=== PATIENT | female | born 1950 | race Caucasian/White ===

== ENCOUNTER 2016-06-10 19:43 | Emergency (ER) | payer MEDICARE, OTHER ==
[~2016-06-10] VITALS: Ht 160 cm; Wt 94.8 kg
[~2016-06-10 19:43] MED LIST: ALPR0.5T6 PO; CAND1TAB PO; CAND32TA2 PO; DIVA500T2 PO; HYDR-2762 PO; HYDR-963 PO; INSU100I13 SQ; LAMO100T PO; LAMO150T PO; LEVO137T3 PO; METF10002 PO; PROP10TA PO; PROP40TA PO; QUET200T4 PO; SERT100T PO; SERT25TA4 PO; SIMV10TA3 PO; SIMV20TA3 PO
--- NOTE | 2016-06-10 21:13 | PHYS DOC ---
Past Medical History Past Medical History: Bipolar, Diabetes-Type II, High Cholesterol, Hypertension , Other Additional Past Medical Histor: bipolar, restless leg syndrome, sleep apnea, neuropathy Past Surgical History: Cholecystectomy, , Hysterectomy, Tonsillectomy Alcohol Use: None Drug Use: None Adult General Chief Complaint Chief Complaint: HEAD INJURY/TRAUMA HPI HPI 65-year-old female presenting to the emergency department after sustaining a mechanical fall at a restaurant today. She reports having her leg caught up in a chair where she fell backwards and hit the back of her head. She denies loss of consciousness does have mild dizziness and feels "foggy". Review of systems is negative for chest pain shortness of breath neck pain. She denies abdominal pain. All other review of systems is negative unless otherwise noted in history of present illness. Review of Systems Review of Systems SEE ABOVE. Allergies Allergies Allergies Coded Allergies Type Severity Reaction Last Updated Verified No Known Drug Allergies 05/23/15 No Physical Exam Physical Exam Constitutional: Well developed, well nourished, no acute distress, non-toxic appearance. HENT: Normocephalic, patient has small abrasion to the left occipital region. No depressed skull fracture noted., bilateral external ears normal, oropharynx moist, no oral exudates, nose normal. [] Eyes: PERRLA, EOMI, conjunctiva normal, no discharge. [] Neck: Normal range of motion, no tenderness, supple, no stridor. Cervical thoracic and lumbar spine are nontender to palpation in the midline. No step- offs abrasions lacerations or ecchymosis present. Cardiovascular:Heart rate regular rhythm, no murmur Lungs & Thorax: Bilateral breath sounds clear to auscultation [] Abdomen: Bowel sounds normal, soft, no tenderness, no masses, no pulsatile masses. [] Skin: Warm, dry, no erythema, no rash. Back: No tenderness, no CVA tenderness. [] Extremities: No tenderness, no cyanosis, no clubbing, ROM intact, no edema. Neurologic: Alert and oriented X 3, normal motor function, normal sensory function, no focal deficits noted. Psychologic: Affect normal, judgement normal, mood normal. [] Current Patient Data Vital Signs Vital Signs Date Time Temp Pulse Resp B/P Pulse Ox O2 Delivery O2 Flow Rate FiO2 06/10/16 20:30 58 18 111/55 95 Room Air 06/10/16 19:58 98.3 98.3 EKG EKG [] Radiology/Procedures Radiology/Procedures [] Course & Med Decision Making Course & Med Decision Making Pertinent Labs and Imaging studies reviewed. (See chart for details) [] 65-year-old female presenting to the emergency after sustaining head injury. Vital signs unremarkable. Physical exam showed small abrasion to the head. Given the patient's age which disqualifies her from clinical decision rules head neck CT was obtained which was negative for acute pathology. She subsequent discharged home and given concussion discharge instructions. Patient comfortable with discharge. Dragon Disclaimer Dragon Disclaimer This electronic medical record was generated, in whole or in part, using a voice recognition dictation system. Departure Departure Impression: Primary Impression: Concussion Additional Impression: Head injury Disposition: HOME, SELF-CARE Condition: STABLE Referrals: LUIS MANUEL CALI MD (PCP) Patient Instructions: Concussion and Brain Injury Additional Instructions: Thank you for allowing us to participate in your care today. Followup with your primary care physician in 3 days if your symptoms do not improve. If you do not have a primary care provider you can ask for a list of our primary care providers. Return to the emergency department you have any new or concerning findings. This should be evaluated by the primary care physician and any necessary consulting services for continued management within a few days after discharge. Return to emergency room if you have any new or concerning symptoms including but not limited to fever, chills, nausea, vomiting, intractable pain, any new rashes, chest pain, shortness of air, uncontrolled bleeding, difficulty breathing, and/or vision loss. Problem Qualifiers LUCI SANDERS MD Jun 10, 2016 21:13
--- NOTE | 2016-06-10 21:48 | RAD ---
INDICATION: Fall backwards out of chair, hit head without loss of consciousness. COMPARISON: December 11, 2010 TECHNIQUE: Axial, noncontrast CT images obtained through the head. One or more of the following individualized dose reduction techniques were utilized for this examination: 1. Automated exposure control; 2. Adjustment of the mA and/or kV according to patient size; 3. Use of iterative reconstruction technique. FINDINGS: No acute intracranial process is identified, specifically no acute blood products, midline shift, mass effect or extra-axial fluid collections. Ventricles and sulci appear appropriate for patient's age. Basilar cisterns are maintained. The visualized paranasal sinuses are clear. Mastoid air cells are clear. No calvarial fracture is present. Overlying scalp is intact. IMPRESSION: No acute intracranial process. Electronically signed by: Joan Silva (Jun 10, 2016 21:46:38)
[2016-06-10 22:00] VITALS: BP 115/56
== END 2016-06-10 22:22 | disposition home or self-care (01) ==
LOC: ER 19:43
DX: S06.0X0A Concussion without loss of consciousness, initial encounter (principal); G47.30 Sleep apnea, unspecified; E11.40 Type 2 diabetes mellitus with diabetic neuropathy, unspecified; I10 Essential (primary) hypertension; E78.00 Pure hypercholesterolemia, unspecified; W01.198A Fall on same level from slipping, tripping and stumbling with subsequent striking against other object, initial encounter; Y93.89 Activity, other specified; Y92.511 Restaurant or cafe as the place of occurrence of the external cause; Y99.8 Other external cause status
CPT/HCPCS: 70450; 99284-25

== ENCOUNTER → 2016-09-23 | Outpatient (CLI) | payer MEDICARE, OTHER ==
[~2016-09-23] MED LIST changes: +METF-620 PO; -METF10002 PO
--- NOTE | 2016-09-23 14:43 | KCIC ---
Examination: DEXA scan HISTORY: History of postmenopausal COMPARISON: None available FINDINGS: The bone mineral density of the lumbar spine is 1.356 g/sq cm the T score of 2.8 and a Z score of 4.7. The bone mineral density in the right hip is 0.870 g/sq cm with T score -0.6 and a Z score of 0.7. IMPRESSION: The bone mineral density is normal. Electronically signed by: Trell Warner MD (09/23/2016 2:40 PM)
== END | disposition home or self-care (01) ==
LOC: KCIC DEXA 13:12
PROVIDERS: ATTEND Family Medicine
DX: Z78.0 Asymptomatic menopausal state (principal); Z91.89 Other specified personal risk factors, not elsewhere classified
CPT/HCPCS: 77080

== ENCOUNTER 2017-04-08 20:48 | Emergency (ER) | payer MEDICARE, OTHER ==
[2017-04-08 21:28] LABS: BILIRUBIN,URINE SMALL (NEG); CLARITY,URINE CLEAR; COLOR,URINE YELLOW; GLUCOSE,URINE NEGATIVE (NEG); NITRITE,URINE NEGATIVE (NEG); PH,URINE 5.5; PROTEIN,URINE NEGATIVE (NEG-TRACE)
[2017-04-08 21:36] LABS: BACTERIA,URINE MODERATE /HPF (0-FEW); RBC,URINE OCC /HPF (0-2); SQUAMOUS EPITHELIAL CELL,UR MOD /LPF
[2017-04-08] MEDS: NITROFURANTOIN MONOHYD/M-CRYST 100 MG CAPSULE. PO (22:25)
== END 2017-04-08 22:40 | disposition home or self-care (01) ==
LOC: ER 20:48
DX: R42 Dizziness and giddiness (principal); N30.00 Acute cystitis without hematuria; E78.00 Pure hypercholesterolemia, unspecified; I10 Essential (primary) hypertension; F31.9 Bipolar disorder, unspecified; E11.40 Type 2 diabetes mellitus with diabetic neuropathy, unspecified; G25.81 Restless legs syndrome; Z90.710 Acquired absence of both cervix and uterus; Z90.49 Acquired absence of other specified parts of digestive tract; Z98.890 Other specified postprocedural states
CPT/HCPCS: 81001; 87086; 99284

== ENCOUNTER → 2017-05-16 | Outpatient (CLI) | payer MEDICARE, OTHER | END | disposition home or self-care (01) | LOC: KCIC MRI 08:57 | DX: G25.0 Essential tremor (principal); R26.81 Unsteadiness on feet; R41.3 Other amnesia | CPT/HCPCS: 70551 ==

== ENCOUNTER 2017-05-25 16:14 | Inpatient (IN) | payer MEDICARE, OTHER ==
[2017-05-25] MEDS ORDERED: 0.9 % SODIUM CHLORIDE 10 ML DISP.SYRIN. IV (16:30)
[2017-05-25 16:42] LABS: BILIRUBIN,URINE SMALL (NEG); CLARITY,URINE CLOUDY; COLOR,URINE YELLOW; GLUCOSE,URINE NEGATIVE (NEG); NITRITE,URINE NEGATIVE (NEG); PH,URINE 7.5; PROTEIN,URINE NEGATIVE (NEG-TRACE)
[2017-05-25 16:47] LABS: BACTERIA,URINE 0 /HPF (0-FEW); RBC,URINE 0 /HPF (0-2); SQUAMOUS EPITHELIAL CELL,UR FEW /LPF; WBC,URINE OCC /HPF (0-4)
[2017-05-25 16:48] LABS: ADD MAN DIFF? NO
[2017-05-25 16:50] LABS: BASO # 0.1 x10^3/uL (0.0-0.2); BASO % 1 % (0-3); EOS # 0.1 x10^3/uL (0.0-0.7); EOS % 4 % (0-3); HEMATOCRIT 36.2 % (36.0-47.0); HEMOGLOBIN 12.3 g/dL (12.0-15.5); LYMPH # 1.5 x10^3/uL (1.0-4.8); LYMPH % 37 % (24-48); MEAN CORPUSCULAR HEMOGLOBIN 32 pg (25-35); MEAN CORPUSCULAR HGB CONC 34 g/dL (31-37); MEAN CORPUSCULAR VOLUME 95 fL (79-100); MONO # 0.4 x10^3/uL (0.0-1.1); MONO % 10 % (0-9); NEUT # 1.9 x10^3uL (1.8-7.7); NEUT % 48 % (31-73); PLATELET COUNT 99 x10^3/uL (140-400); RED BLOOD COUNT 3.82 x10^6/uL (3.50-5.40); RED CELL DISTRIBUTION WIDTH 13.5 % (11.5-14.5); WHITE BLOOD COUNT 3.9 x10^3/uL (4.0-11.0)
[2017-05-25] MEDS: IV NORMAL SALINE 1000ML BAG 1,000 ML IV ×2 (17:02→19:25)
[2017-05-25 17:11] LABS: ANION GAP 6 (6-14); BLOOD UREA NITROGEN 23 mg/dL (7-20); CALCIUM 8.5 mg/dL (8.5-10.1); CARBON DIOXIDE 30 mmol/L (21-32); CHLORIDE 99 mmol/L (98-107); CREATININE 1.5 mg/dL (0.6-1.0); GFR 34.7; GLUCOSE 249 mg/dL (70-99); POTASSIUM 5.2 mmol/L (3.5-5.1); SODIUM 135 mmol/L (136-145)
[2017-05-25 17:16] LABS: TROPONINI < 0.017 ng/mL (0.000-0.055)
[2017-05-25 17:16] LABS: ALBUMIN 3.7 g/dL (3.4-5.0); ALK PHOS 45 U/L (46-116); ALT (SGPT) 16 U/L (14-59); AST (SGOT) 13 U/L (15-37); DIRECT BILIRUBIN 0.1 mg/dL (0.0-0.2); LIPASE 57 U/L (73-393); MAGNESIUM 1.9 mg/dL (1.8-2.4); TOTAL BILIRUBIN 0.3 mg/dL (0.2-1.0); TOTAL PROTEIN 6.7 g/dL (6.4-8.2)
[2017-05-25 17:19] LABS: NT-PRO BNP 165 pg/mL (0-124)
[2017-05-25 17:19] LABS: CKMB INDEX 1.2 % (0-4); CKMB MASS 0.9 ng/mL (0.0-3.6); CREATINE KINASE 75 U/L (26-192)
[2017-05-25 17:45] LABS: THYROID STIM HORMONE (TSH) 1.429 uIU/mL (0.358-3.74)
[2017-05-25] MEDS ORDERED: ACETAMINOPHEN 325 MG TABLET. PO (19:15)
[2017-05-25] MEDS ORDERED: ONDANSETRON PF 4 MG/2 ML VIAL. IV (19:15)
[2017-05-25] MEDS ORDERED: fentaNYL PF VIAL 100 MCG/2 ML VIAL IV (19:15)
[2017-05-25] MEDS: CEPHALEXIN 250 MG CAPSULE. PO (19:25)
[2017-05-25] MEDS ORDERED: INSULIN DETEMIR 300 UNITS/3 ML INSULN.PEN. SQ (21:00)
[2017-05-25] MEDS ORDERED: DIVALPROEX DELAYED RELEASE 500 MG TABLET.DR. PO (21:00)
[2017-05-25] MEDS ORDERED: ALPRAZolam 0.5 MG TABLET PO (21:00)
[2017-05-25] MEDS ORDERED: lamoTRIgine 25 MG TABLET. PO (21:30)
[2017-05-25] MEDS: SIMVASTATIN 10 MG TABLET PO (22:18)
[2017-05-25] MEDS: lamoTRIgine 25 MG TABLET. PO (22:19)
[2017-05-25] MEDS: QUEtiapine 100 MG TABLET. PO (22:19)
[2017-05-25] MEDS: DIVALPROEX DELAYED RELEASE 250 MG TABLET.DR. PO (22:20)
[2017-05-25] MEDS: PROPRANOLOL 40 MG TABLET. PO (22:21)
[2017-05-25] MEDS: INSULIN DETEMIR 300 UNITS/3 ML INSULN.PEN. SQ (22:28)
[2017-05-25 22:31] LABS: POC GLUCOSE 215 mg/dL (70-99)
[2017-05-26] MEDS: IV NORMAL SALINE 1000ML BAG 1,000 ML IV ×2 (05:41→13:59)
[2017-05-26] MEDS: ASPIRIN 325 MG TABLET PO (08:53)
[2017-05-26] MEDS: ALPRAZolam 0.5 MG TABLET PO (08:54)
[2017-05-26] MEDS: lamoTRIgine 25 MG TABLET. PO ×2 (08:54→20:06)
[2017-05-26] MEDS: DIVALPROEX DELAYED RELEASE 250 MG TABLET.DR. PO ×2 (08:56→20:09)
[2017-05-26] MEDS: LEVOTHYROXINE 137 MCG TABLET PO (08:56)
[2017-05-26] MEDS: SERTRALINE 50 MG TABLET. PO (08:56)
[2017-05-26] MEDS: PROPRANOLOL 40 MG TABLET. PO (09:00)
[2017-05-26] MEDS: CEPHALEXIN 250 MG CAPSULE. PO ×4 (09:04→20:09)
[2017-05-26 11:50] LABS: POC GLUCOSE 158 mg/dL (70-99)
[2017-05-26 16:51] LABS: CREATINE KINASE 98 U/L (26-192)
[2017-05-26 17:00] LABS: POC GLUCOSE 181 mg/dL (70-99)
[2017-05-26 17:11] LABS: VITAMIN-B12 328 pg/mL (247-911)
[2017-05-26 18:29] LABS: BARBITURATES NEG (NEG); BENZODIAZEPINES POS (NEG); CANNABINOIDS NEG (NEG); COCAINE NEG (NEG); METHADONE NEG (NEG); OPIATES POS (NEG); PHENCYCLIDINE NEG (NEG)
[2017-05-26 18:30] LABS: AMPHETAMINE/METHAMPHETAMINE NEG (NEG); ETHANOL, URINE NEG (NEG)
[2017-05-26] MEDS: SIMVASTATIN 10 MG TABLET PO (20:08)
[2017-05-26] MEDS: QUEtiapine 100 MG TABLET. PO (20:08)
[2017-05-26] MEDS: INSULIN DETEMIR 300 UNITS/3 ML INSULN.PEN. SQ (20:19)
[2017-05-26 20:48] LABS: POC GLUCOSE 189 mg/dL (70-99)
[2017-05-26 20:58] LABS: POC GLUCOSE 93 mg/dL (70-99)
[2017-05-26] MEDS ORDERED: INSULIN DETEMIR 300 UNITS/3 ML INSULN.PEN. SQ (21:00)
[2017-05-27 08:07] LABS: POC GLUCOSE 63 mg/dL (70-99)
[2017-05-27] MEDS: lamoTRIgine 25 MG TABLET. PO (09:18)
[2017-05-27] MEDS: DIVALPROEX DELAYED RELEASE 250 MG TABLET.DR. PO ×2 (09:25→20:26)
[2017-05-27] MEDS: CEPHALEXIN 250 MG CAPSULE. PO (09:26)
[2017-05-27] MEDS: SERTRALINE 50 MG TABLET. PO (09:26)
[2017-05-27] MEDS: lamoTRIgine 100 MG TABLET. PO ×2 (09:26→20:25)
[2017-05-27] MEDS: LEVOTHYROXINE 137 MCG TABLET PO (09:26)
[2017-05-27] MEDS: ASPIRIN 325 MG TABLET PO (09:26)
[2017-05-27 09:57] LABS: POC GLUCOSE 163 mg/dL (70-99)
[2017-05-27 12:48] LABS: VAL ACID 38 mcg/mL (50-100)
[2017-05-27] MEDS: IV 1/2 NORMAL SALINE 500 ML IV (15:27)
[2017-05-27 16:52] LABS: POC GLUCOSE 197 mg/dL (70-99)
[2017-05-27 17:32] LABS: POC GLUCOSE 166 mg/dL (70-99)
[2017-05-27] MEDS: HYDROcodone/APAP 7.5/325MG 1 TAB TABLET PO (20:26)
[2017-05-27] MEDS: SIMVASTATIN 10 MG TABLET PO (20:26)
[2017-05-27] MEDS: QUEtiapine 100 MG TABLET. PO (20:27)
[2017-05-27 21:01] LABS: POC GLUCOSE 190 mg/dL (70-99)
[2017-05-27] MEDS: INSULIN DETEMIR 300 UNITS/3 ML INSULN.PEN. SQ (21:13)
[2017-05-28] MEDS: HYDROcodone/APAP 7.5/325MG 1 TAB TABLET PO ×3 (03:14→19:59)
[2017-05-28 08:02] LABS: POC GLUCOSE 84 mg/dL (70-99)
[2017-05-28] MEDS: SERTRALINE 50 MG TABLET. PO (09:19)
[2017-05-28] MEDS: DIVALPROEX DELAYED RELEASE 250 MG TABLET.DR. PO ×2 (09:19→19:59)
[2017-05-28] MEDS: lamoTRIgine 100 MG TABLET. PO ×2 (09:19→19:58)
[2017-05-28] MEDS: ASPIRIN 325 MG TABLET PO (09:19)
[2017-05-28] MEDS: LEVOTHYROXINE 137 MCG TABLET PO (09:19)
[2017-05-28 11:55] LABS: POC GLUCOSE 244 mg/dL (70-99)
[2017-05-28 16:58] LABS: POC GLUCOSE 256 mg/dL (70-99)
[2017-05-28] MEDS: SIMVASTATIN 10 MG TABLET PO (19:59)
[2017-05-28] MEDS: QUEtiapine 100 MG TABLET. PO (19:59)
[2017-05-28 21:19] LABS: POC GLUCOSE 254 mg/dL (70-99)
[2017-05-28] MEDS: INSULIN DETEMIR 300 UNITS/3 ML INSULN.PEN. SQ (21:20)
[2017-05-29] MEDS: HYDROcodone/APAP 7.5/325MG 1 TAB TABLET PO ×4 (01:50→23:37)
[2017-05-29 07:41] LABS: POC GLUCOSE 88 mg/dL (70-99)
[2017-05-29] MEDS: DIVALPROEX DELAYED RELEASE 250 MG TABLET.DR. PO ×2 (09:47→21:04)
[2017-05-29] MEDS: ASPIRIN 325 MG TABLET PO (09:47)
[2017-05-29] MEDS: lamoTRIgine 100 MG TABLET. PO ×2 (09:48→21:05)
[2017-05-29] MEDS: LEVOTHYROXINE 137 MCG TABLET PO (09:48)
[2017-05-29] MEDS: SERTRALINE 50 MG TABLET. PO (09:48)
[2017-05-29 11:58] LABS: POC GLUCOSE 124 mg/dL (70-99)
[2017-05-29] MEDS: CALCIUM CARBONATE 500 MG TABLET PO ×2 (13:04→21:04)
[2017-05-29 16:57] LABS: POC GLUCOSE 145 mg/dL (70-99)
[2017-05-29] MEDS: QUEtiapine 100 MG TABLET. PO (21:04)
[2017-05-29] MEDS: SIMVASTATIN 10 MG TABLET PO (21:04)
[2017-05-29] MEDS: INSULIN DETEMIR 300 UNITS/3 ML INSULN.PEN. SQ (21:13)
[2017-05-29 22:02] LABS: POC GLUCOSE 399 mg/dL (70-99)
[2017-05-30] MEDS: LEVOTHYROXINE 137 MCG TABLET PO (07:52)
[2017-05-30] MEDS: lamoTRIgine 100 MG TABLET. PO (07:53)
[2017-05-30] MEDS: ASPIRIN 325 MG TABLET PO (07:53)
[2017-05-30] MEDS: SERTRALINE 50 MG TABLET. PO (07:53)
[2017-05-30] MEDS: DIVALPROEX DELAYED RELEASE 250 MG TABLET.DR. PO (07:53)
[2017-05-30] MEDS: CALCIUM CARBONATE 500 MG TABLET PO (07:54)
[2017-05-30] MEDS: HYDROcodone/APAP 7.5/325MG 1 TAB TABLET PO (07:56)
[2017-05-30 08:11] LABS: POC GLUCOSE 136 mg/dL (70-99)
[2017-05-30] MEDS: ERGOCALCIFEROL (VITAMIN D2) 50,000 UNIT CAPSULE. PO (10:17)
[2017-05-30] MEDS: ALPRAZolam 0.5 MG TABLET PO (11:38)
[2017-05-30 12:00] LABS: POC GLUCOSE 299 mg/dL (70-99)
[2017-06-26] MEDS ORDERED: ERGOCALCIFEROL (VITAMIN D2) 50,000 UNIT CAPSULE. PO (12:00)
== END 2017-05-30 15:45 | DRG 917 ==
LOC: ER 16:14 → 6 SOUTH 18:44
DX: T42.4X1A Poisoning by benzodiazepines, accidental (unintentional), initial encounter (principal); G92 Toxic encephalopathy; E11.22 Type 2 diabetes mellitus with diabetic chronic kidney disease; E11.42 Type 2 diabetes mellitus with diabetic polyneuropathy; F11.20 Opioid dependence, uncomplicated; R55 Syncope and collapse; W18.39XA Other fall on same level, initial encounter; N18.3 Chronic kidney disease, stage 3 (moderate); I12.9 Hypertensive chronic kidney disease with stage 1 through stage 4 chronic kidney disease, or unspecified chronic kidney disease; E55.9 Vitamin D deficiency, unspecified; G47.33 Obstructive sleep apnea (adult) (pediatric); E03.9 Hypothyroidism, unspecified; E66.9 Obesity, unspecified; E78.5 Hyperlipidemia, unspecified; F17.200 Nicotine dependence, unspecified, uncomplicated; F31.9 Bipolar disorder, unspecified; T42.4X5A Adverse effect of benzodiazepines, initial encounter; G25.0 Essential tremor; Z96.649 Presence of unspecified artificial hip joint; G25.81 Restless legs syndrome; Z96.653 Presence of artificial knee joint, bilateral; M19.90 Unspecified osteoarthritis, unspecified site; R29.6 Repeated falls; Y93.89 Activity, other specified; Y92.89 Other specified places as the place of occurrence of the external cause; Y99.8 Other external cause status; Z87.440 Personal history of urinary (tract) infections; Z90.710 Acquired absence of both cervix and uterus; Z91.81 History of falling; Z88.2 Allergy status to sulfonamides
CPT/HCPCS: 36415; 70450; 71045; 72125; 80048; 80076; 80164; 80307; 81001; 82306; 82550; 82553; 82607; 82962; 83690; 83735; 83880; 84443; 84484; 85025; 87086; 93005; 93880; 95816; 96360; 97112-GP; 97116-GP; 97161-GP; 97165-GO; 97530-GO; 97530-GP; 97535-GO; 99285; 99285-25; J1815; J7030

== ENCOUNTER 2020-10-21 10:13 | Emergency (ER) | payer MEDICARE, OTHER ==
[~2020-10-21] VITALS: Ht 160 cm; Wt 75.0 kg
[~2020-10-21 10:13] MED LIST changes: +ASPI325T8 PO; +CAND32TA19 PO; -CAND32TA2 PO; +CARB1TAB22 PO; +CYAN-25 PO; +DIVA250T14 PO; +DONE10TA7 PO; +DOXE3TAB4 PO; +ENTA200T2 PO; -HYDR-2762 PO; +HYDR-2765 PO; +HYDR-3135 PO; -HYDR-963 PO; +INSU100I32 SQ; -LAMO100T PO; +LAMO100T8 PO; -LAMO150T PO; +LAMO150T4 PO; +LOSA25TA4 PO; +MELA10CA PO; -METF-620 PO; +METF10007 PO; +NALO25TA4 PO; +NITR100C62 PO; +SERT-266 PO; -SERT25TA4 PO; +SIMV10TA15 PO; -SIMV10TA3 PO; +SIMV20TA18 PO; -SIMV20TA3 PO
--- NOTE | 2020-10-21 10:36 | PHYS DOC ---
Past Medical History Past Medical History: Bipolar, Diabetes-Type II, High Cholesterol, Hypert ension, Other Additional Past Medical Histor: bipolar, restless leg syndrome, sleep apnea, neuropathy, tremors, Parkinson Past Surgical History: Cholecystectomy, , Hip Replacement, Hysterectomy, Knee Replacement, Tonsillectomy Smoking Status: Former Smoker Alcohol Use: Rarely Drug Use: None General Adult EDM: Chief Complaint: WEAKNESS/GENERALIZED HPI: HPI: Patient is a 70 year old female with history of Parkinson's disease, bipolar disease, HTN, HLD who presents with lightheaded/presyncopal episode. Approximately 9 AM patient was getting up to go to a moderate class when she was walking up the door she felt like both of her legs were getting weak and working to give out on her. She started to feel lightheaded. She sat down and the symptom started to improve. She did have some associated nausea. No chest pain , palpitations, or shortness of breath. Had a similar episode several months ago that had not recurred until today. No recent medication changes. She is unclear what her bipolar meds are, but states that she is no longer on lithium. She is on carbidopa levodopa, and an additional Parkinson's meds. Review of Systems: Review of Systems: Constitutional: Denies fever or chills. [] Eyes: Denies change in visual acuity. [] HENT: Denies nasal congestion or sore throat. [] Respiratory: Denies cough or shortness of breath. [] Cardiovascular: Denies chest pain or edema. [] GI: Denies abdominal pain, nausea, vomiting, bloody stools or diarrhea. [] : Denies dysuria. [] Musculoskeletal: Denies back pain or joint pain. [] Integument: Denies rash. [] Neurologic: Lightheadedness. Bilateral leg weakness. Denies headache, focal weakness or sensory changes. [] Endocrine: Denies polyuria or polydipsia. [] Lymphatic: Denies swollen glands. [] Psychiatric: Denies depression or anxiety. [] Heart Score: C/O Chest Pain: N/A Risk Factors: Risk Factors: DM, Current or recent (<one month) smoker, HTN, HLP, family history of CAD, obesity. Risk Scores: Score 0 - 3: 2.5% MACE over next 6 weeks - Discharge Home Score 4 - 6: 20.3% MACE over next 6 weeks - Admit for Clinical Observation Score 7 - 10: 72.7% MACE over next 6 weeks - Early Invasive Strategies Family History: Family History: No pertinent family history Current Medications: Current Medications Medications (Trade) Dose Ordered Sig/Edith Start Time Stop Time Status Last Admin Dose Admin Ringer's Solution 500 ml @ 500 mls/hr 1X ONCE 10/21/20 10:45 10/21/20 11:44 UNV Allergies: Allergies: Allergies Coded Allergies Type Severity Reaction Last Updated Verified Sulfa (Sulfonamide Antibiotics) Allergy Unknown 05/25/17 Yes Physical Exam: PE: Constitutional: Well developed, well nourished, no acute distress, non-toxic appearance. [] HENT: Normocephalic, atraumatic, bilateral external ears normal, oropharynx moist, no oral exudates, nose normal. [] Eyes: PERRLA, EOMI, conjunctiva normal, no discharge. [] Neck: Normal range of motion, no tenderness, supple, no stridor. [] Cardiovascular:Heart rate regular rhythm, no murmur [] Lungs & Thorax: Bilateral breath sounds clear to auscultation [] Abdomen: Bowel sounds normal, soft, no tenderness, no masses, no pulsatile masses. [] Skin: Warm, dry, no erythema, no rash. [] Back: No tenderness, no CVA tenderness. [] Extremities: No tenderness, no cyanosis, no clubbing, ROM intact, no edema. [] Neurologic: Alert, oriented to person, place, time. Face is symmetric. Speech is normal. Cranial nerves III-XII intact. 5/5 strength in bilateral upper and lower extremities in all dermatomes. No dysmetria with [id number]. Psychologic: Affect normal, judgement normal, mood normal. [] Current Patient Data: Labs: Laboratory Tests Test 10/21/20 10:32 Glucose (Fingerstick) 119 mg/dL (70-99) H EKG: EKG: Sinus rhythm. Rate 55. Borderline prolonged NE 208. Left anterior fascicular block. Flattening of T waves laterally and inferiorly. Compared to previous NE interval and LAFB are similar. [] Radiology/Procedures: Radiology/Procedures: NA [] Impression: NA Course & Med Decision Making: Course & Med Decision Making Pertinent Labs and Imaging studies reviewed. (See chart for details) Patient is a 70-year-old female with a history of bipolar disease and Parkinson's on carbidopa/levodopa who presents with what sounds like a pr esyncopal episode. No unilateral symptoms, speech difficulty, vision changes to suggest a stroke either anterior or posterior circulation. No chest pain to suggest ACS. EKG shows an LAFB and mild first-degree AV block. Compared with previous the flattening of the ST segments laterally are new. Troponin was ordered and negative which is very reassuring against ACS. As well as her history of no chest pain. Vital signs are reassuring. Potentially could be orthostatic lightheadedness given her Parkinson's and potential autonomic instability. Will check orthostatic vitals. Will check labs including CBC, CMP. 1051 AM Labs were reassuring. Orthostatic vitals were negative. Patient was able to eat and drink in the emergency department. Will pursue an ambulatory trial, and if she does well feel that she could be discharged home with PCP follow-up. 1322 AM Malia Disclaimer: Malia Disclaimer: This electronic medical record was generated, in whole or in part, using a voice recognition dictation system. Departure Departure Impression: Primary Impression: Pre-syncope Disposition: HOME / SELF CARE / HOMELESS Condition: STABLE Referrals: LUIS MANUEL CALI MD (PCP) Please follow-up with your PCP this week. Additional Instructions: Your labs, vital signs, and exam are reassuring against a dangerous cause for your symptoms. Please get up slowly in the future and give yourself time to equilibrate. This may be due to your Parkinson's disease, as this can cause changes in blood pressure. Please follow-up with your primary care doctor to look into this further. If you have new/concerning symptoms such as fever/chills, shortness of breath, chest pain, or other symptoms please return to the emergency department for reevaluation. KINGS BRADLEY MD Oct 21, 2020 10:36
[2020-10-21] MEDS ORDERED: IV RINGERS,LACTATED 1000ML 500 ML IV ONE (10:45)
[2020-10-21] MEDS ORDERED: IV RINGERS,LACTATED 500ML 500 ML IV ONE (10:45)
[2020-10-21 10:57] LABS: BASO % 1 % (0-3); EOS # 0.1 x10^3/uL (0.0-0.7); EOS % 3 % (0-3); HEMATOCRIT 33.3 % (36.0-47.0); HEMOGLOBIN 11.3 g/dL (12.0-15.5); LYMPH # 1.2 x10^3/uL (1.0-4.8); LYMPH % 39 % (24-48); MEAN CORPUSCULAR HEMOGLOBIN 33 pg (25-35); MEAN CORPUSCULAR HGB CONC 34 g/dL (31-37); MEAN CORPUSCULAR VOLUME 96 fL (79-100); MONO # 0.3 x10^3/uL (0.0-1.1); MONO % 10 % (0-9); NEUT # 1.4 x10^3/uL (1.8-7.7); NEUT % 47 % (31-73); PLATELET COUNT 112 x10^3/uL (140-400); RED BLOOD COUNT 3.47 x10^6/uL (3.50-5.40); RED CELL DISTRIBUTION WIDTH 13.3 % (11.5-14.5); WHITE BLOOD COUNT 3.1 x10^3/uL (4.0-11.0)
[2020-10-21 11:02] LABS: ANION GAP 7 (6-14); BLOOD UREA NITROGEN 20 mg/dL (7-20); BUN/CREATININE RATIO 18 (6-20); CALCIUM 8.4 mg/dL (8.5-10.1); CARBON DIOXIDE 30 mmol/L (21-32); CHLORIDE 102 mmol/L (98-107); CREATININE 1.1 mg/dL (0.6-1.0); GFR 49.1; GLUCOSE 116 mg/dL (70-99); POTASSIUM 3.8 mmol/L (3.5-5.1); SODIUM 139 mmol/L (136-145)
[2020-10-21 11:10] LABS: ALBUMIN 3.3 g/dL (3.4-5.0); ALBUMIN/GLOBULIN RATIO 1.2 (1.0-1.7); ALK PHOS 37 U/L (46-116); AST (SGOT) 9 U/L (15-37); TOTAL BILIRUBIN 0.4 mg/dL (0.2-1.0)
[2020-10-21 11:12] LABS: ALT (SGPT) < 6 U/L (14-59)
[2020-10-21 12:56] VITALS: BP 126/64
== END 2020-10-21 14:59 | disposition home or self-care (01) ==
LOC: ER 10:13
DX: R55 Syncope and collapse (principal); I44.4 Left anterior fascicular block; F31.9 Bipolar disorder, unspecified; E78.00 Pure hypercholesterolemia, unspecified; I10 Essential (primary) hypertension; E11.40 Type 2 diabetes mellitus with diabetic neuropathy, unspecified; G20 Parkinson's disease; G25.81 Restless legs syndrome; Z87.891 Personal history of nicotine dependence
CPT/HCPCS: 36415; 80053; 82962; 84484; 85025; 93005; 99284; J7120

== ENCOUNTER → 2020-12-28 | Outpatient (CLI) | payer MEDICARE, OTHER ==
--- NOTE | 2020-12-28 15:09 | RAD ---
CT HEAD WITHOUT CONTRAST 12/28/2020 2:55 PM Indication: Reason: RECURENT FALLS, AND DUTTA / Spl. Instructions: / History: Comparison: CT head without contrast July 15, 2020 Procedure: Multidetector CT imaging of the head was performed without the administration of contrast. Findings: There is no evidence of acute intracranial hemorrhage. Mild atrophic changes again noted. T here is no evidence of acute territorial infarction. No mass effect or midline shift is identified . The ventricles and basilar cisterns have an appropriate appearance. No abnormal extra-axial fluid co llections are seen. No acute osseous changes are identified. Impression: No evidence of acute intracranial abnormality CT DOSING PQRS STATEMENT: One or more of the following individualized dose reduction techniques were utilized for this examinat ion: 1. Automated exposure control 2. Adjustment of the mA and/or kV according to patient size 3. Use of iterative reconstruction technique Electronically signed by: Darinel Reed MD (12/28/2020 3:07 PM) [id number]
== END ==
LOC: CT 14:40
PROVIDERS: ATTEND Physician Assistant
DX: R51.9 Headache, unspecified (principal); R29.6 Repeated falls
CPT/HCPCS: 70450

== ENCOUNTER 2021-08-09 19:50 | Inpatient (IN) | payer MEDICARE, OTHER ==
[~2021-08-09] VITALS: Ht 160 cm; Wt 75.4 kg
[~2021-08-09 19:50] MED LIST changes: +LOSA-362 PO; -LOSA25TA4 PO
--- NOTE | 2021-08-09 20:27 | PHYS DOC ---
Past Medical History Past Medical History: Bipolar, Diabetes-Type II, High Cholesterol, Hypertension, Other Additional Past Medical Histor: bipolar, restless leg syndrome, sleep apnea, neuropathy, tremors, Parkinson Past Surgical History: Cholecystectomy, , Hysterectomy, Tonsillectomy Smoking Status: Former Smoker Alcohol Use: Rarely Drug Use: None Adult General HPI HPI Patient is a 71 year old female presenting to the emergency department for evaluation of nausea with 1 episode of emesis. [facility] activated this patient as a code stroke as they said that she had right-sided facial droop that started at 7 PM tonight. After her head CT was completed I went into the room immediately and she told me that she believes her right side of her face is always drooping due to a history of Rutledge's palsy multiple years ago. She is a very poor historian as she could not tell me which side but she pointed to her right side and she did not know when it occurred or what her deficits were. She said that she does not believe that this is new. She said she did not call the ambulance for facial droop rather her family said that she looked dizzy and had the episode of emesis. She says she has no emesis at this time. I asked her what she meant by she looked dizzy and she said she was uncertain as she does not feel any symptoms at this time. I asked her if she had a room spinning sensation or a lightheaded sensation and she said she did not know. Patient has a history of diabetes and takes oral medications and insulin at night. Looking at the history and physical exam from July 2020 I was able to ascertain the following information as far as her medical history goes. There is no family present to collaborate the facial weakness history. HISTORY OF PRESENT ILLNESS: A 70-year-old white female with multiple medical problems including mild diabetes, Parkinson's disease, bipolar disorder and hypertension, came in with 24 hours of weakness, dizziness, fatigue and lethargy. She was found to be hypotensive in the ER. IV fluids were given. Laboratory studies were unremarkable. She continued to feel weak, dizzy and was admitted, but she feels somewhat better today. These symptoms ____ on the morning of admission. She has had no hematemesis, melena, fever, vomiting, diarrhea or other complaints. PAST MEDICAL HISTORY: Her only blood pressure medicine is losartan 50 mg daily. She takes multiple psychiatric meds. She has mild insulin-dependent diabetes, takes Parkinson's meds as well. ALLERGIES: No known drug allergies. Last hemoglobin A1c was 6.9 about 3 months ago when her last office visit occurred. SOCIAL HISTORY: Nonsmoker, nondrinker. Lives at home with her , not employed, not physically active. FAMILY HISTORY: Unremarkable. Review of Systems Review of Systems Constitutional: Denies fever or chills [] Eyes: Denies change in visual acuity, redness, or eye pain [] HENT: Denies nasal congestion or sore throat [] Respiratory: Denies cough or shortness of breath [] Cardiovascular: No additional information not addressed in HPI [] GI: Denies abdominal pain. + nausea, vomiting. No bloody stools or diarrhea [] : Denies dysuria or hematuria [] Musculoskeletal: Denies back pain or joint pain [] Integument: Denies rash or skin lesions [] Neurologic: Denies headache, focal weakness or sensory changes [] All other systems were reviewed and found to be within normal limits, except as documented in this note. Current Medications Current Medications Current Medications Medications (Trade) Dose Ordered Sig/Edith Start Time Stop Time Status Last Admin Dose Admin Meclizine HCl (Antivert) 25 mg 1X ONCE 08/09/21 20:45 08/09/21 20:46 DC 08/09/21 20:26 25 MG Ondansetron HCl (Zofran) 4 mg 1X ONCE 08/09/21 20:45 08/09/21 20:46 DC 08/09/21 20:26 4 MG Sodium Chloride 1,000 ml @ 1,000 mls/hr 1X ONCE 08/09/21 20:45 08/09/21 21:44 DC 08/09/21 20:26 1,000 MLS/HR Allergies Allergies Allergies Coded Allergies Type Severity Reaction Last Updated Verified Sulfa (Sulfonamide Antibiotics) Allergy Unknown 05/25/17 Yes Physical Exam Physical Exam Constitutional: Well developed, well nourished, no acute distress, non-toxic appearance. [] HENT: Normocephalic, atraumatic, bilateral external ears normal, oropharynx moist, no oral exudates, nose normal. [] Eyes: PERRLA, EOMI, conjunctiva normal, no discharge. [] Neck: Normal range of motion, no tenderness, supple, no stridor. [] Cardiovascular:Heart rate regular rhythm, no murmur [] Lungs & Thorax: Bilateral breath sounds clear to auscultation [] Abdomen: Bowel sounds normal, soft, no tenderness, no masses, no pulsatile masses. [] Skin: Warm, dry, no erythema, no rash. [] Back: No tenderness, no CVA tenderness. [] Extremities: No tenderness, no cyanosis, no clubbing, ROM intact, no edema. [] Neurologic: Alert and oriented X 3, extremities have 5 out of 5 strength in bilateral upper and lower extremities. When she smiles she does have mild right-sided facial droop and her right upper eyelid droops as well. Symmetric strength on furring her brow. Current Patient Data Vital Signs Vital Signs Date Time Temp Pulse Resp B/P (MAP) Pulse Ox O2 Delivery O2 Flow Rate FiO2 08/09/21 20:34 79 18 112/49 (70) 100 Room Air 08/09/21 19:50 98.2 98.2 Lab Values Laboratory Tests Test 08/09/21 20:09 08/09/21 20:18 08/09/21 21:10 Glucose (Fingerstick) 284 mg/dL (70-99) H White Blood Count 4.8 x10^3/uL (4.0-11.0) Red Blood Count 4.07 x10^6/uL (3.50-5.40) Hemoglobin 13.4 g/dL (12.0-15.5) Hematocrit 38.6 % (36.0-47.0) Mean Corpuscular Volume 95 fL (79-100) Mean Corpuscular Hemoglobin 33 pg (25-35) Mean Corpuscular Hemoglobin Concent 35 g/dL (31-37) Red Cell Distribution Width 12.9 % (11.5-14.5) Platelet Count 136 x10^3/uL (140-400) L Neutrophils (%) (Auto) 59 % (31-73) Lymphocytes (%) (Auto) 29 % (24-48) Monocytes (%) (Auto) 9 % (0-9) Eosinophils (%) (Auto) 3 % (0-3) Basophils (%) (Auto) 1 % (0-3) Neutrophils # (Auto) 2.8 x10^3/uL (1.8-7.7) Lymphocytes # (Auto) 1.4 x10^3/uL (1.0-4.8) Monocytes # (Auto) 0.4 x10^3/uL (0.0-1.1) Eosinophils # (Auto) 0.1 x10^3/uL (0.0-0.7) Basophils # (Auto) 0.1 x10^3/uL (0.0-0.2) Prothrombin Time 12.8 SEC (11.7-14.0) Prothrombin Time INR 1.0 (0.8-1.1) Activated Partial Thromboplast Time 27 SEC (24-38) Sodium Level 138 mmol/L (136-145) Potassium Level 4.7 mmol/L (3.5-5.1) Chloride Level 99 mmol/L (98-107) Carbon Dioxide Level 25 mmol/L (21-32) Anion Gap 14 (6-14) Blood Urea Nitrogen 23 mg/dL (7-20) H Creatinine 1.5 mg/dL (0.6-1.0) H Estimated GFR (Cockcroft-Gault) 34.2 BUN/Creatinine Ratio 15 (6-20) Glucose Level 288 mg/dL (70-99) H Calcium Level 8.7 mg/dL (8.5-10.1) Total Bilirubin 0.3 mg/dL (0.2-1.0) Aspartate Amino Transferase (AST) 10 U/L (15-37) L Alanine Aminotransferase (ALT) < 6 U/L (14-59) L Alkaline Phosphatase 46 U/L (46-116) Troponin I High Sensitivity 7 ng/L (4-50) Total Protein 7.2 g/dL (6.4-8.2) Albumin 3.7 g/dL (3.4-5.0) Albumin/Globulin Ratio 1.1 (1.0-1.7) Thyroid Stimulating Hormone (TSH) 1.339 uIU/mL (0.358-3.74) Urine Collection Type Unknown Urine Color (Auto) Dark yellow Urine Turbidity Clear Urine pH (Auto) 5.5 (<5.0-8.0) Urine Specific [place] 1.031 (1.000-1.030) Urine Protein (Auto) 30 mg/dL (Negative) Urine Glucose (Auto)(UA) 200 mg/dL (Negative) Urine Ketones (Auto) 10 mg/dL (Negative) Urine Blood (Auto) Negative (Negative) Urine Nitrite Negative (Negative) Urine Bilirubin (Auto) Small (Negative) Urine Urobilinogen (Auto) 2 mg/dL (Normal) Urine Leukocyte Esterase (Auto) Large (Negative) Urine RBC 0 /HPF (0-2) Urine WBC 11-20 /HPF (0-4) Urine Squamous Epithelial Cells Few /LPF Urine Bacteria Few /HPF (0-FEW) Urine Hyaline Casts Moderate /HPF Urine Mucus Mod /LPF Laboratory Tests 08/09/21 20:18 Laboratory Tests 08/09/21 20:18 EKG EKG Sinus rhythm at 85 beats per minutes with leftward axis no ST elevation or depression with normal T waves but her EKG is compromised by and tremor due to her Parkinson's. Radiology/Procedures Radiology/Procedures [] Course & Med Decision Making Course & Med Decision Making I talked to her for approximately 10 minutes regarding her facial droop and if this could potentially be a stroke or not and patient said that she has had this in the past for years and then I told her that her history seem to be somewhat unclear and discussed tPA including the benefits and risks and patient refused tPA. I will check further labs and imaging treat her with IV fluids for her hyperglycemia and give her Zofran and meclizine in case this was an episode of vertigo. Patient's NIH = 2 for the R sided facial droop and chronic L arm weakness. Of note she was activated as a code stroke but there was an email sent today from the neurologist manager front office, Dr. Crenshaw essentially discouraging neuro consults, his email is posted in our work area. "Please be advised that there is no need to call neurologist(which is me every day except when I am on vacation or [place] [facility] covering) with every code stroke alert. Most of the time these are not strokes. If after assessing the patient, the ER doc has determined there is a stroke and needs a decision regarding TPA or other acute issue, I would be glad to receive a page. On the other hand, if, for instance, stroke is several days old and symptoms are stable, there is no need to call me." Obviously a stroke, especially a small stroke cannot always be determined clinically and requires MRI for diagnosis. The ER is also not allowed to order an MRI without Neurology approval. I had extensive discussion with the patient's spouse and the patient's daughter regarding her history and they confirmed that the facial droop is not new and in fact that she was diagnosed with Rutledge's palsy 20 years ago and that her facial droop is stable. However they did provide information that the reason they called 911 is because they witnessed an unresponsive episode. They said that while she was eating dinner she became unresponsive and started moaning and shaking her entire body with both upper extremities. They said that this lasted 30 to 45 seconds. Patient has never had a seizure before in the past. Given patient's new onset seizure and abnormal work-up with hyperglycemia and ketones in her urine and also urinalysis we will plan for admission. Rocephin and insulin have been ordered. Patient admitted in guarded condition. I spoke to Dr. Cali and he agreed to accept patient. Dragon Disclaimer Dragon Disclaimer This electronic medical record was generated, in whole or in part, using a voice recognition dictation system. Departure Departure Impression: Primary Impression: Seizure-like activity Additional Impressions: Unresponsive episode Hyperglycemia UTI (urinary tract infection) Disposition: ADMITTED INPATIENT Admitting Physician: Konrad Cali Condition: GUARDED Referrals: KONRAD CALI MD (PCP) Problem Qualifiers KONRAD LUIS DO August 09, 2021 20:27
[2021-08-09 20:30] LABS: BASO # 0.1 x10^3/uL (0.0-0.2); BASO % 1 % (0-3); EOS # 0.1 x10^3/uL (0.0-0.7); EOS % 3 % (0-3); HEMATOCRIT 38.6 % (36.0-47.0); HEMOGLOBIN 13.4 g/dL (12.0-15.5); LYMPH # 1.4 x10^3/uL (1.0-4.8); LYMPH % 29 % (24-48); MEAN CORPUSCULAR HEMOGLOBIN 33 pg (25-35); MEAN CORPUSCULAR HGB CONC 35 g/dL (31-37); MEAN CORPUSCULAR VOLUME 95 fL (79-100); MONO # 0.4 x10^3/uL (0.0-1.1); MONO % 9 % (0-9); NEUT # 2.8 x10^3/uL (1.8-7.7); NEUT % 59 % (31-73); PLATELET COUNT 136 x10^3/uL (140-400); RED BLOOD COUNT 4.07 x10^6/uL (3.50-5.40); RED CELL DISTRIBUTION WIDTH 12.9 % (11.5-14.5); WHITE BLOOD COUNT 4.8 x10^3/uL (4.0-11.0)
[2021-08-09 20:37] LABS: PROTHROMBIN TIME PATIENT 12.8 SEC (11.7-14.0)
[2021-08-09 20:40] LABS: ANION GAP 14 (6-14); BLOOD UREA NITROGEN 23 mg/dL (7-20); BUN/CREATININE RATIO 15 (6-20); CALCIUM 8.7 mg/dL (8.5-10.1); CARBON DIOXIDE 25 mmol/L (21-32); CHLORIDE 99 mmol/L (98-107); CREATININE 1.5 mg/dL (0.6-1.0); GFR 34.2; GLUCOSE 288 mg/dL (70-99); POTASSIUM 4.7 mmol/L (3.5-5.1); SODIUM 138 mmol/L (136-145)
[2021-08-09] MEDS ORDERED: ONDANSETRON PF 4 MG/2 ML VIAL. IVP ONE (20:45)
[2021-08-09] MEDS ORDERED: IV NORMAL SALINE 1000ML BAG 1,000 ML IV ONE (20:45)
[2021-08-09] MEDS ORDERED: MECLIZINE HCL 12.5 MG TABLET. PO ONE (20:45)
[2021-08-09 20:46] LABS: ALBUMIN 3.7 g/dL (3.4-5.0); ALBUMIN/GLOBULIN RATIO 1.1 (1.0-1.7); ALK PHOS 46 U/L (46-116); AST (SGOT) 10 U/L (15-37); TOTAL BILIRUBIN 0.3 mg/dL (0.2-1.0); TOTAL PROTEIN 7.2 g/dL (6.4-8.2)
[2021-08-09 20:47] LABS: ALT (SGPT) < 6 U/L (14-59)
[2021-08-09 21:27] LABS: BACTERIA,URINE FEW /HPF (0-FEW); RBC,URINE 0 /HPF (0-2)
[2021-08-09 21:28] LABS: HYALINE CASTS, URINE MODERATE /HPF
[2021-08-09] MEDS ORDERED: INSULIN REGULAR 100 UNIT/ML 3ML VIAL. IV ONE (22:00)
[2021-08-09] MEDS ORDERED: cefTRIAXone IV Push 1 GM VIAL. IVP ONE (22:00)
[2021-08-09] MEDS ORDERED: ONDANSETRON PF 4 MG/2 ML VIAL. IVP PRN (22:15)
--- NOTE | 2021-08-09 22:29 | NUR ---
Pt summary report was sent via tube system to [address] [place] [address] at [phone].
[2021-08-09 23:00] VITALS: BP 156/67
[2021-08-09] MEDS ORDERED: LEVO112T49 PO (23:25)
[2021-08-09] MEDS ORDERED: HYDROcodone/APAP 7.5/325MG 1 TAB TABLET PO PRN (23:45)
[2021-08-09] MEDS ORDERED: ALPRAZolam 0.5 MG TABLET PO PRN (23:45)
[2021-08-10] MEDS ORDERED: QUEtiapine 100 MG TABLET. PO SCH
[2021-08-10] MEDS ORDERED: SIMVASTATIN 10 MG TABLET PO SCH
[2021-08-10] MEDS ORDERED: DIVALPROEX EXTENDED RELEASE 500 MG TAB.ER.24H. PO SCH
[2021-08-10] MEDS ORDERED: INSULIN GLARGINE SYRINGE. SQ SCH
[2021-08-10] MEDS: CARBIDOPA/LEVODOPA 25/100MG TABLET PO SCH ×4 (00:12→17:00)
[2021-08-10] MEDS: lamoTRIgine 100 MG TABLET. PO SCH ×2 (00:12→09:08)
[2021-08-10] MEDS: ENTACAPONE 200 MG TABLET PO SCH ×4 (00:13→17:00)
[2021-08-10 02:37] VITALS: BP 89/48
[2021-08-10 05:55] LABS: BASO % 1 % (0-3); EOS # 0.1 x10^3/uL (0.0-0.7); EOS % 2 % (0-3); HEMATOCRIT 31.9 % (36.0-47.0); HEMOGLOBIN 11.2 g/dL (12.0-15.5); LYMPH # 1.8 x10^3/uL (1.0-4.8); LYMPH % 40 % (24-48); MEAN CORPUSCULAR HEMOGLOBIN 33 pg (25-35); MEAN CORPUSCULAR HGB CONC 35 g/dL (31-37); MEAN CORPUSCULAR VOLUME 93 fL (79-100); MONO # 0.4 x10^3/uL (0.0-1.1); MONO % 9 % (0-9); NEUT # 2.1 x10^3/uL (1.8-7.7); NEUT % 48 % (31-73); PLATELET COUNT 110 x10^3/uL (140-400); RED BLOOD COUNT 3.44 x10^6/uL (3.50-5.40); RED CELL DISTRIBUTION WIDTH 12.9 % (11.5-14.5); WHITE BLOOD COUNT 4.5 x10^3/uL (4.0-11.0)
[2021-08-10] MEDS ORDERED: LEVOTHYROXINE 112 MCG TABLET PO SCH (06:00)
[2021-08-10 06:08] LABS: CALCIUM 8.3 mg/dL (8.5-10.1); CREATININE 1.3 mg/dL (0.6-1.0); GFR 40.4; POTASSIUM 4.5 mmol/L (3.5-5.1)
[2021-08-10 07:00] VITALS: BP 97/50
--- NOTE | 2021-08-10 08:14 | PDOC ---
Provider Note Date of Service: DATE: 08/10/21 TIME: 08:14 Provider Note dictated Justifications for Admission Other Justification LUIS MANUEL CALI MD August 10, 2021 08:14
[2021-08-10] MEDS ORDERED: DONEPEZIL HCL 10 MG TABLET. PO SCH (09:00)
[2021-08-10] MEDS ORDERED: NALOXEGOL OXALATE PO SCH (09:00)
[2021-08-10] MEDS ORDERED: CYANOCOBALAMIN (VITAMIN B-12) 1,000 MCG TABLET. PO SCH (09:00)
[2021-08-10] MEDS ORDERED: SERTRALINE 50 MG TABLET. PO SCH (09:00)
[2021-08-10] MEDS ORDERED: ASPIRIN 325 MG TABLET PO SCH (09:00)
--- NOTE | 2021-08-10 10:26 | PDOC2 ---
NEUROLOGY CONSULT Date of Service DOS: DATE: 08/10/21 TIME: 10:17 Reason for Consult Reason for Consult: Syncope, possible stroke, possible seizure Referring Physician Referring Physician: Dr. Sanders Source Source: Caregiver (Daughter), Chart review, Patient History of Present Illness History of Present Illness The patient is a 71-year-old right-handed female who was not feeling well yesterday. She felt sick to her stomach and was lightheaded. She was at dinner with her daughter and and the rest of the daughter's family. She did not feel like eating. They brought her to the couch. 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 Then the patient lost consciousness briefly. There was disconjugate gaze. There was some tremulous movement. I have seen the patient in the past for essential tremor, she received a second opinion at and they have diagnosed Parkinson's. Indeed, the patient has more of a resting tremor now. There is no previous history of stroke or seizure. Patient was hypertensive in the emergency room Past Medical History Cardiovascular: HTN, Hyperlipidemia Pulmonary: Other (Sleep apnea) CENTRAL NERVOUS SYSTEM: Periperal neuropathy, Other (Parkinson's, restless legs) Psych: Anxiety, Bipolar, Depression Musculoskeletal: low back pain, Osteoarthritis Renal/: Chronic renal insuff (CKD III) Endocrine: Diabetes, Hypothyroidism Past Surgical History Past Surgical History: Cholecystectomy, , Total hip replacement (Left, following fracture), Total knee replacement (Bilateral), Hysterectomy Family History Family History: CVA Social History Social History , no alcohol or tobacco Current Medications Current Medications Current Medications Sodium Chloride 1,000 ml @ 1,000 mls/hr 1X ONCE IV Last administered on 08/09/21at 20:26; Start 08/09/21 at 20:45; Stop 08/09/21 at 21:44; Status DC Ondansetron HCl (Zofran) 4 mg 1X ONCE IVP Last administered on 08/09/21at 20:26; Start 08/09/21 at 20:45; Stop 08/09/21 at 20:46; Status DC Meclizine HCl (Antivert) 25 mg 1X ONCE PO Last administered on 08/09/21at 20:26; Start 08/09/21 at 20:45; Stop 08/09/21 at 20:46; Status DC Ceftriaxone Sodium (Rocephin) 2 gm 1X ONCE IVP Last administered on 08/09/21at 22:00; Start 08/09/21 at 22:00; Stop 08/09/21 at 22:01; Status DC Insulin Human Regular (HumuLIN R VIAL) 8 unit 1X ONCE IV Last administered on 08/09/21at 22:03; Start 08/09/21 at 22:00; Stop 08/09/21 at 22:01; Status DC Ondansetron HCl (Zofran) 4 mg PRN Q8HRS PRN IVP NAUSEA/VOMITING 1ST CHOICE; Start 08/09/21 at 22:15; Stop 08/10/21 at 22:14 Alprazolam (Xanax) 0.5 mg PRN Q12HR PRN PO ANXIETY / AGITATION; Start 08/09/21 at 23:45 Aspirin (Anabella Aspirin) 325 mg DAILY PO Last administered on 08/10/21at 09:07; Start 08/10/21 at 09:00 Carbidopa/Levodopa (Sinemet 25/100) 2 tab QID PO Last administered on 08/10/21at 09:08; Start 08/10/21 at 00:00 Cyanocobalamin (Vitamin B-12) 1,000 mcg DAILY PO Last administered on 08/10/21at 09:08; Start 08/10/21 at 09:00 Divalproex Sodium (Depakote Er) 1,000 mg QHS PO Last administered on 08/10/21at 00:12; Start 08/10/21 at 00:00 Donepezil HCl (Aricept) 10 mg DAILY PO Last administered on 08/10/21at 09:07; Start 08/10/21 at 09:00 Entacapone (Comtan) 200 mg QID PO Last administered on 08/10/21at 00:13; Start 08/10/21 at 00:00 Acetaminophen/ Hydrocodone Bitart (Lortab 7.5/325) 1 tab PRN Q8HRS PRN PO MODERATE PAIN 4-6; Start 08/09/21 at 23:45 Levothyroxine Sodium (Synthroid) 112 mcg DAILY06 PO Last administered on 08/10/21at 06:00; Start 08/10/21 at 06:00 Simvastatin (Zocor) 10 mg QHS PO Last administered on 08/10/21at 00:12; Start 08/10/21 at 00:00 Non-Formulary Medication (Doxepin HCl ) 3 mg QHS PO ; Start 08/10/21 at 21:00; Stop 08/10/21 at 07:54; Status DC Lamotrigine (LaMICtal) 150 mg BID PO Last administered on 08/10/21at 09:08; Start 08/10/21 at 00:00 Non-Formulary Medication (Melatonin ) 1 cap QHS PO ; Start 08/10/21 at 21:00; Status UNV Non-Formulary Medication (Naloxegol Oxalate (Movantik)) 1 tab DAILY PO ; Start 08/10/21 at 09:00; Status UNV Quetiapine Fumarate (SEROquel) 200 mg QHS PO Last administered on 08/10/21at 00:12; Start 08/10/21 at 00:00 Sertraline HCl (Zoloft) 100 mg DAILY PO Last administered on 08/10/21at 09:08; Start 08/10/21 at 09:00 Insulin Glargine (Lantus Syringe) 12 unit QHS SQ ; Start 08/10/21 at 00:00 Nitrofurantoin Macrocrystals (Macrobid) 100 mg BID PO ; Start 08/10/21 at 12:00 Active Scripts Active Reported Levothyroxine Sodium 112 Mcg Tablet 1 Tab PO QAM Shayy Ravipen U-100 (Insulin Glargine,Hum.rec.anlog) 100 Unit/1 Ml Insuln.pen 12 Unit SQ QHS Aspirin 325 Mg Tablet 1 Tab PO DAILY Vitamin B-12 (Cyanocobalamin (Vitamin B-12)) 1,000 Mcg Tablet 1 Tab PO DAILY 30 Days Movantik (Naloxegol Oxalate) 25 Mg Tablet 1 Tab PO DAILY Donepezil Hcl 10 Mg Tablet 1 Tab PO DAILY Melatonin 10 Mg Capsule 1 Cap PO QHS 30 Days Divalproex Sodium Er (Divalproex Sodium) 250 Mg Tab.er.24h 4 Tab PO QHS Entacapone 200 Mg Tablet 1 Tab PO QID Doxepin HCl 3 Mg Tablet 3 Mg PO QHS Carbidopa-Levodopa 25-100 Tab (Carbidopa/Levodopa) 1 Each Tablet 2 Tab PO QID Alprazolam 0.5 Mg Tablet 1 Tab PO PRN Q12HR PRN Lamotrigine 150 Mg Tablet 1 Tab PO BID Zoloft (Sertraline Hcl) 100 Mg Tablet 1 Tab PO DAILY Simvastatin 10 Mg Tablet 1 Tab PO QHS Hydrocodone-Apap 7.5-325 (Hydrocodone Bit/Acetaminophen) 1 Each Tablet 1 Tab PO PRN Q8HRS PRN Seroquel (Quetiapine Fumarate) 200 Mg Tablet 1 Tab PO QHS Metformin Hcl 1,000 Mg Tablet 1 Tab PO BID Allergies Allergies: Coded Allergies: Sulfa (Sulfonamide Antibiotics) (Verified Allergy, Intermediate, 08/09/21) ROS Review of System Negative for fever, chills, weight loss, shortness of breath, chest pain, indigestion, hematochezia, melena, and dysuria. Full 14-point review of systems is negative. Physical Exam Physical Examination General: Well-developed, well-nourished white female in no acute distress HEENT: Normocephalic andatraumatic.Temporal arteriespulsatile and nontender. Neck: Supple without bruit, no meningismus Musculoskeletal: Stability:see neurologic. Gait exam:see neurologic. Tone:see n eurologic.Strength:see neurologic. Neurological: Mental Status:intact, orientation, memory, attention span/concentration, la nguage, fund of knowledge normal. Cranial Nerves:Pupils equal and reactive to light, extraocular movements areintact, visual quiros are full to confrontation. Facial sensation is normal. There is no facial asymmetry. Vestibulo-ocular reflex is intact. Palate elevates and tongue protrudes in midline. All other cranial related problems are negative except as mentioned before.Reflexes:1+ and symmetric with flexor plantar responses. Motor:5/5 strength with normal tone and bulk. Coordination:Finger-nose finger and gady-tv-doxa testing are normal. Rapid alternating movements and fine finger movements are intact. She has mild rest tremor worse on the right. Gait:not tested. Sensory:stocking oss Vitals VITALS Vital Signs Date Time Temp Pulse Resp B/P (MAP) Pulse Ox O2 Delivery O2 Flow Rate FiO2 08/10/21 08:00 Room Air 08/10/21 07:00 97.9 67 20 97/50 (66) 90 97.9 Labs Labs Laboratory Tests Test 08/09/21 20:09 08/09/21 20:18 08/09/21 21:10 08/10/21 00:22 Glucose (Fingerstick) 284 mg/dL (70-99) 84 mg/dL (70-99) White Blood Count 4.8 x10^3/uL (4.0-11.0) Red Blood Count 4.07 x10^6/uL (3.50-5.40) Hemoglobin 13.4 g/dL (12.0-15.5) Hematocrit 38.6 % (36.0-47.0) Mean Corpuscular Volume 95 fL (79-100) Mean Corpuscular Hemoglobin 33 pg (25-35) Mean Corpuscular Hemoglobin Concent 35 g/dL (31-37) Red Cell Distribution Width 12.9 % (11.5-14.5) Platelet Count 136 x10^3/uL (140-400) Neutrophils (%) (Auto) 59 % (31-73) Lymphocytes (%) (Auto) 29 % (24-48) Monocytes (%) (Auto) 9 % (0-9) Eosinophils (%) (Auto) 3 % (0-3) Basophils (%) (Auto) 1 % (0-3) Neutrophils # (Auto) 2.8 x10^3/uL (1.8-7.7) Lymphocytes # (Auto) 1.4 x10^3/uL (1.0-4.8) Monocytes # (Auto) 0.4 x10^3/uL (0.0-1.1) Eosinophils # (Auto) 0.1 x10^3/uL (0.0-0.7) Basophils # (Auto) 0.1 x10^3/uL (0.0-0.2) Prothrombin Time 12.8 SEC (11.7-14.0) Prothromb Time International Ratio 1.0 (0.8-1.1) Activated Partial Thromboplast Time 27 SEC (24-38) Sodium Level 138 mmol/L (136-145) Potassium Level 4.7 mmol/L (3.5-5.1) Chloride Level 99 mmol/L (98-107) Carbon Dioxide Level 25 mmol/L (21-32) Anion Gap 14 (6-14) Blood Urea Nitrogen 23 mg/dL (7-20) Creatinine 1.5 mg/dL (0.6-1.0) Estimated GFR (Cockcroft-Gault) 34.2 BUN/Creatinine Ratio 15 (6-20) Glucose Level 288 mg/dL (70-99) Calcium Level 8.7 mg/dL (8.5-10.1) Total Bilirubin 0.3 mg/dL (0.2-1.0) Aspartate Amino Transf (AST/SGOT) 10 U/L (15-37) Alanine Aminotransferase (ALT/SGPT) < 6 U/L (14-59) Alkaline Phosphatase 46 U/L (46-116) Troponin I High Sensitivity 7 ng/L (4-50) Total Protein 7.2 g/dL (6.4-8.2) Albumin 3.7 g/dL (3.4-5.0) Albumin/Globulin Ratio 1.1 (1.0-1.7) Thyroid Stimulating Hormone (TSH) 1.339 uIU/mL (0.358-3.74) Urine Collection Type Unknown Urine Color (Auto) Dark yellow Urine Turbidity Clear Urine pH (Auto) 5.5 (<5.0-8.0) Urine Specific [place] 1.031 (1.000-1.030) Urine Protein (Auto) 30 mg/dL (Negative) Urine Glucose (Auto)(UA) 200 mg/dL (Negative) Urine Ketones (Auto) 10 mg/dL (Negative) Urine Blood (Auto) Negative (Negative) Urine Nitrite Negative (Negative) Urine Bilirubin (Auto) Small (Negative) Urine Urobilinogen (Auto) 2 mg/dL (Normal) Urine Leukocyte Esterase (Auto) Large (Negative) Urine RBC 0 /HPF (0-2) Urine WBC 11-20 /HPF (0-4) Urine Squamous Epithelial Cells Few /LPF Urine Bacteria Few /HPF (0-FEW) Urine Hyaline Casts Moderate /HPF Urine Mucus Mod /LPF Test 08/10/21 04:50 08/10/21 07:34 White Blood Count 4.5 x10^3/uL (4.0-11.0) Red Blood Count 3.44 x10^6/uL (3.50-5.40) Hemoglobin 11.2 g/dL (12.0-15.5) Hematocrit 31.9 % (36.0-47.0) Mean Corpuscular Volume 93 fL (79-100) Mean Corpuscular Hemoglobin 33 pg (25-35) Mean Corpuscular Hemoglobin Concent 35 g/dL (31-37) Red Cell Distribution Width 12.9 % (11.5-14.5) Platelet Count 110 x10^3/uL (140-400) Neutrophils (%) (Auto) 48 % (31-73) Lymphocytes (%) (Auto) 40 % (24-48) Monocytes (%) (Auto) 9 % (0-9) Eosinophils (%) (Auto) 2 % (0-3) Basophils (%) (Auto) 1 % (0-3) Neutrophils # (Auto) 2.1 x10^3/uL (1.8-7.7) Lymphocytes # (Auto) 1.8 x10^3/uL (1.0-4.8) Monocytes # (Auto) 0.4 x10^3/uL (0.0-1.1) Eosinophils # (Auto) 0.1 x10^3/uL (0.0-0.7) Basophils # (Auto) 0.0 x10^3/uL (0.0-0.2) Sodium Level 140 mmol/L (136-145) Potassium Level 4.5 mmol/L (3.5-5.1) Chloride Level 101 mmol/L (98-107) Carbon Dioxide Level 28 mmol/L (21-32) Anion Gap 11 (6-14) Blood Urea Nitrogen 23 mg/dL (7-20) Creatinine 1.3 mg/dL (0.6-1.0) Estimated GFR (Cockcroft-Gault) 40.4 Glucose Level 143 mg/dL (70-99) Calcium Level 8.3 mg/dL (8.5-10.1) Glucose (Fingerstick) 123 mg/dL (70-99) Laboratory Tests Test 08/09/21 20:09 08/09/21 20:18 08/09/21 21:10 08/10/21 00:22 Glucose (Fingerstick) 284 mg/dL (70-99) 84 mg/dL (70-99) White Blood Count 4.8 x10^3/uL (4.0-11.0) Red Blood Count 4.07 x10^6/uL (3.50-5.40) Hemoglobin 13.4 g/dL (12.0-15.5) Hematocrit 38.6 % (36.0-47.0) Mean Corpuscular Volume 95 fL (79-100) Mean Corpuscular Hemoglobin 33 pg (25-35) Mean Corpuscular Hemoglobin Concent 35 g/dL (31-37) Red Cell Distribution Width 12.9 % (11.5-14.5) Platelet Count 136 x10^3/uL (140-400) Neutrophils (%) (Auto) 59 % (31-73) Lymphocytes (%) (Auto) 29 % (24-48) Monocytes (%) (Auto) 9 % (0-9) Eosinophils (%) (Auto) 3 % (0-3) Basophils (%) (Auto) 1 % (0-3) Neutrophils # (Auto) 2.8 x10^3/uL (1.8-7.7) Lymphocytes # (Auto) 1.4 x10^3/uL (1.0-4.8) Monocytes # (Auto) 0.4 x10^3/uL (0.0-1.1) Eosinophils # (Auto) 0.1 x10^3/uL (0.0-0.7) Basophils # (Auto) 0.1 x10^3/uL (0.0-0.2) Prothrombin Time 12.8 SEC (11.7-14.0) Prothromb Time International Ratio 1.0 (0.8-1.1) Activated Partial Thromboplast Time 27 SEC (24-38) Sodium Level 138 mmol/L (136-145) Potassium Level 4.7 mmol/L (3.5-5.1) Chloride Level 99 mmol/L (98-107) Carbon Dioxide Level 25 mmol/L (21-32) Anion Gap 14 (6-14) Blood Urea Nitrogen 23 mg/dL (7-20) Creatinine 1.5 mg/dL (0.6-1.0) Estimated GFR (Cockcroft-Gault) 34.2 BUN/Creatinine Ratio 15 (6-20) Glucose Level 288 mg/dL (70-99) Calcium Level 8.7 mg/dL (8.5-10.1) Total Bilirubin 0.3 mg/dL (0.2-1.0) Aspartate Amino Transf (AST/SGOT) 10 U/L (15-37) Alanine Aminotransferase (ALT/SGPT) < 6 U/L (14-59) Alkaline Phosphatase 46 U/L (46-116) Troponin I High Sensitivity 7 ng/L (4-50) Total Protein 7.2 g/dL (6.4-8.2) Albumin 3.7 g/dL (3.4-5.0) Albumin/Globulin Ratio 1.1 (1.0-1.7) Thyroid Stimulating Hormone (TSH) 1.339 uIU/mL (0.358-3.74) Urine Collection Type Unknown Urine Color (Auto) Dark yellow Urine Turbidity Clear Urine pH (Auto) 5.5 (<5.0-8.0) Urine Specific [place] 1.031 (1.000-1.030) Urine Protein (Auto) 30 mg/dL (Negative) Urine Glucose (Auto)(UA) 200 mg/dL (Negative) Urine Ketones (Auto) 10 mg/dL (Negative) Urine Blood (Auto) Negative (Negative) Urine Nitrite Negative (Negative) Urine Bilirubin (Auto) Small (Negative) Urine Urobilinogen (Auto) 2 mg/dL (Normal) Urine Leukocyte Esterase (Auto) Large (Negative) Urine RBC 0 /HPF (0-2) Urine WBC 11-20 /HPF (0-4) Urine Squamous Epithelial Cells Few /LPF Urine Bacteria Few /HPF (0-FEW) Urine Hyaline Casts Moderate /HPF Urine Mucus Mod /LPF Test 08/10/21 04:50 08/10/21 07:34 White Blood Count 4.5 x10^3/uL (4.0-11.0) Red Blood Count 3.44 x10^6/uL (3.50-5.40) Hemoglobin 11.2 g/dL (12.0-15.5) Hematocrit 31.9 % (36.0-47.0) Mean Corpuscular Volume 93 fL (79-100) Mean Corpuscular Hemoglobin 33 pg (25-35) Mean Corpuscular Hemoglobin Concent 35 g/dL (31-37) Red Cell Distribution Width 12.9 % (11.5-14.5) Platelet Count 110 x10^3/uL (140-400) Neutrophils (%) (Auto) 48 % (31-73) Lymphocytes (%) (Auto) 40 % (24-48) Monocytes (%) (Auto) 9 % (0-9) Eosinophils (%) (Auto) 2 % (0-3) Basophils (%) (Auto) 1 % (0-3) Neutrophils # (Auto) 2.1 x10^3/uL (1.8-7.7) Lymphocytes # (Auto) 1.8 x10^3/uL (1.0-4.8) Monocytes # (Auto) 0.4 x10^3/uL (0.0-1.1) Eosinophils # (Auto) 0.1 x10^3/uL (0.0-0.7) Basophils # (Auto) 0.0 x10^3/uL (0.0-0.2) Sodium Level 140 mmol/L (136-145) Potassium Level 4.5 mmol/L (3.5-5.1) Chloride Level 101 mmol/L (98-107) Carbon Dioxide Level 28 mmol/L (21-32) Anion Gap 11 (6-14) Blood Urea Nitrogen 23 mg/dL (7-20) Creatinine 1.3 mg/dL (0.6-1.0) Estimated GFR (Cockcroft-Gault) 40.4 Glucose Level 143 mg/dL (70-99) Calcium Level 8.3 mg/dL (8.5-10.1) Glucose (Fingerstick) 123 mg/dL (70-99) Images Images The head CT report is not in the medical record yet, but I reviewed the images and see no acute abnormality. Assessment/Plan Assessment/Plan Impression: Possible seizure, possible vasovagal attack, but she did have disconjugate gaze and right facial weakness. Parkinson's, previously a postural tremor more like essential tremor. Note that the patient is on quetiapine, this could be drug-induced. Psychiatric disorder Recommendations: Continue aspirin Continue statin MRI of the brain Electroencephalogram Carotid Doppler studies Continue Parkinson's medications Discharge later today if studies negative. Thank you for letting me help with the patient's care. KALYAN JOLLEY MD August 10, 2021 10:26
[2021-08-10 11:00] VITALS: BP 131/64
--- NOTE | 2021-08-10 11:48 | NUR ---
SS following for discharge planning. SS reviewed pt chart and discussed with pt RN. Pt is from home and is currently on room air. Neurology following. Brain MRI and EEG today. SS will continue to follow for discharge planning.
[2021-08-10] MEDS ORDERED: NITROFURANTOIN MONOHYD/M-CRYST 100 MG CAPSULE. PO SCH (12:00)
--- NOTE | 2021-08-10 12:22 | EKG ---
[facility] [address] [place] [address] Test Date: 2021-08-09 Test Time: 20:13:57 Pat Name: BABS SOUZA Department: Room: [facility] Gender: F Elementary Instructional Coach: : 1950 Requested By: LUIS MANUEL LUIS Order Number: [id number] Reading MD: Bret Baker Measurements Intervals [place] Rate: 85 P: -29 MN: 158 QRS: -56 QRSD: 118 T: 66 QT: 388 QTc: 462 Interpretive Statements SINUS RHYTHM LEFT ATRIAL ABNORMALITY ABNORMAL LEFT AXIS DEVIATION LEFT ANTERIOR FASCICULAR BLOCK T ABNORMALITY IN HIGH LATERAL LEADS ABNORMAL ECG Electronically Signed On 08-11-2021 17:14:24 CDT by Bret Baker
--- NOTE | 2021-08-10 12:22 | RAD ---
EXAM: CT Head without IV contrast CLINICAL HISTORY: Reason: R facial droop / Spl. Instructions: [id number] / History: COMPARISON: None. TECHNIQUE: Routine CT of the head without contrast. PQRS compliance statement - One or more of the following individualized dose reduction techniques wer e utilized for this study: 1. Automated exposure control 2. Adjustment of the mA and/or kV according to patient size 3. Use of iterative reconstruction technique FINDINGS: There is no evidence of hemorrhage, mass or extra-axial fluid collection. Flores-white differentiation is maintained with no evidence of edema. Subcortical, periventricular as w ell as deep white matter foci of hypoattenuation likely changes of chronic small vessel disease. There is no mass effect or shift of the intracranial structures. The ventricles and cerebral sulci are prominent for the patients stated age consistent with generaliz ed cerebral volume loss. The cerebellum and brainstem are unremarkable. The calvarium demonstrates no evidence of fracture or focal lesion. There is normal aeration of the visualized paranasal sinuses and mastoid air cells. The visualized portions of the orbits are normal. Atherosclerotic calcifications of the intracranial internal carotid and vertebral arteries is seen. IMPRESSION: 1. No evidence for acute intracranial process. 2. Atherosclerotic calcifications of the intracranial internal carotid and vertebral arteries is see n. 3. White matter changes likely of chronic small vessel disease. Findings discussed with ER provider Dr. Loya at 08/09/2021 8:07 PM. FOR INTERNAL CODING PURPOSES RESULT CODE: (C) Electronically signed by: Darien Wallace MD (08/09/2021 8:08 PM) [facility]
--- NOTE | 2021-08-10 12:22 | HP ---
DATE OF SERVICE: 08/10/2021 ADMIT DATE: 08/09/2021 HISTORY OF PRESENT ILLNESS: A 71 -year-old white female with multiple medical problems including Parkinson's disease, mild diabetes, bipolar disorder and others. She is followed by Neurology. She recently had ultrasound-guided brain surgery at for Parkinson's tremor with good success. She has never had seizures in the past. She had episodes of dizziness and nausea followed by a brief period of unresponsiveness, but she seems to recall all events and no true seizure activity seen. There is some mild weakness incurred with possible stroke, but then this was discounted as a . CT of the head was unremarkable. She has had no further episodes since admission. She was given a single dose of Rocephin for . She takes Lamictal and valproic acid for bipolar disorder, but no seizure drugs at this point. She is on low dose Basaglar insulin with good diabetic control and blood sugar was not low in the ambulance and did not require any IV glucose. She has had no problems since admission. PAST HISTORY: MEDICATIONS: Multiple medications listed per the chart. ALLERGIES: SULFA. Hemoglobin A1c is 6.6 most recently. SOCIAL HISTORY: , disabled, unemployed. Nonsmoker, nondrinker. FAMILY HISTORY: Unremarkable. REVIEW OF SYSTEMS: Unremarkable. OBJECTIVE: ENT: All within normal limits. NECK: No masses, nodes or bruits. LUNGS: Clear. No tachypnea. CARDIOVASCULAR: Regular rate. No irregular beat or murmur. ABDOMEN: Obese, soft, nontender. NEUROLOGIC: She has stiffness and very mild tremor consistent with Parkinson's disease. There is no overt focal findings. Gait was not tested. Mental status is intact. EXTREMITIES: Good pedal and radial pulses. No joint or skin lesions. LABORATORY STUDIES: Unremarkable except for evidence of a probable urinary tract infection. ASSESSMENT: Episode of unresponsiveness. She has no history of seizures and this does not sound like a seizure to me, but etiology is not clear. It was not hypoglycemic, it does not appear to be an acute stroke. She could have had mild orthostatic episode of neurogenic based Parkinson's and diabetes, even though she does not take blood pressure meds. PLAN: Neuro consultation and likely discharge later today with no new medications. Rocephin and Macrobid for the urinary tract infection. SREEDHAR/DAY/LESLY TORRES: SREEDHAR/alfonzo TID: [id number]
--- NOTE | 2021-08-10 12:23 | RAD ---
EXAM: CT Abdomen and Pelvis without IV contrast CLINICAL HISTORY: Reason: nausea and vomiting / Spl. Instructions: / History: . COMPARISON: none TECHNIQUE: Helical CT of the abdomen and pelvis without intravenous contrast. Axial, coronal and sagi ttal reformatted images were generated. PQRS compliance statement - One or more of the following individualized dose reduction techniques wer e utilized for this study: 1. Automated exposure control 2. Adjustment of the mA and/or kV according to patient size 3. Use of iterative reconstruction technique FINDINGS: Lack of intravenous contrast limits evaluation of solid organs, vasculature, and lymph nodes. Lower chest: Lung bases are clear. Abdomen and Pelvis: No focal liver lesion. Liver is enlarged measuring 20.8 cm in length. Spleen is unremarkable. Left ad renal gland thickening. Right adrenal gland is unremarkable. Gallbladder is not seen. No biliary duct al dilatation. Right interpolar subcentimeter hypodense renal lesion is too small to accurately characterize but lik paul cystic.. No hydronephrosis. No hydroureter. Bladder is decompressed. Appendix is normal. Moderate to large volume colonic stool content is seen. No small or large bowel dilatation. No bowel obstruct ion. Colonic diverticula are seen. No evidence for acute diverticulitis. Trace fat-containing periumb ilical hernia is seen. No abdominal or pelvic ascites. No abdominal or pelvic lymphadenopathy. Aorta is normal in caliber wi th atherosclerotic calcifications. Bones: IM nail fixation left hip. Degenerative changes of the lower lumbar spine. No aggressive osseous lesi on is seen. IMPRESSION: 1. No bowel obstruction. 2. Moderate to large volume colonic stool content can be correlated for possible constipation. 3. Colonic diverticula are seen without CT evidence for acute diverticulitis. 4. Hepatomegaly. Electronically signed by: Darien Wallace MD (08/09/2021 10:18 PM) [facility]
[2021-08-10 14:40] VITALS: BP 127/61
--- NOTE | 2021-08-10 15:43 | EEG ---
DATE OF SERVICE: 08/10/2021 EEG NUMBER: [id number], performed on 08/10/2021. OBJECTIVE: The patient is a 71-year-old female with possible seizure activity yesterday. DESCRIPTION: This is a digital study. Electrodes are placed according to the international 10-20 system. Bipolar and referential montages are available. Activation procedures typically include hyperventilation and intermittent photic stimulation. INTERPRETATION: The waking background consists of 8 Hz, 20-50 microvolt activity, symmetrically distributed over parietooccipital regions and reactive to eye opening. Hyperventilation and intermittent photic stimulation are noncontributory. Stage 1 sleep is achieved with normal electroencephalogram patterns. IMPRESSION: This electroencephalogram with the patient asleep and awake is within normal limits. There is no focal, paroxysmal, or epileptiform activity. Thank you for letting us help with the patient's care. ADALID DR: Marci TID: [id number] CC: LUIS MANUEL CALI MD
--- NOTE | 2021-08-10 15:45 | RAD ---
EXAM: CAROTID DOPPLER SONOGRAM. HISTORY: Transient ischemic attack, right facial droop. TECHNIQUE: Reddy scale and color Doppler sonographic evaluation of the neck with spectral waveform enzo lysis was performed and static images are submitted for review. FINDINGS: RIGHT: The peak systolic velocity within the common carotid artery is 72 cm/sec. The peak systolic ve locity within the internal carotid artery is 77 cm/sec and the end diastolic velocity within the inte rnal carotid artery is 15 cm/sec. The ICA/CCA ratio is 1.1. Grayscale images demonstrate no grayscale stenosis. LEFT: The peak systolic velocity within the common carotid artery is 56 cm/sec. The peak systolic carolina ocity within the internal carotid artery is 70 cm/sec and the end diastolic velocity within the inter nal carotid artery is 19 cm/sec. The ICA/CCA ratio is 1.1. Grayscale images demonstrate no grayscale stenosis. There is antegrade flow within both vertebral arteries. IMPRESSION: 1. No evidence of hemodynamically significant stenosis. PQRS Compliance Statement - Stenosis calculations for CT, MR and conventional angiography are based u estefania measurement of the distal ICA diameter in accordance with the NASCET methodology. Stenosis calcu lations for carotid ultrasound studies are derived from validated velocity criteria which are known t o correlate with the NASCET methodology. Electronically signed by: Thais Vela MD (08/10/2021 3:43 PM) [id number]
--- NOTE | 2021-08-10 16:19 | RAD ---
EXAM: Brain MRI without contrast. HISTORY: Facial droop. Seizure. TECHNIQUE: Multiplanar, multisequence magnetic resonance imaging of the brain was performed without c ontrast. COMPARISON: CT dated 08/19/2021. FINDINGS: There is no restricted diffusion to suggest acute or subacute infarction. There is no mass effect or midline shift. There is no hydrocephalus. There is cerebral volume loss. There is a tiny fo cus of susceptibility effect within the left thalamus due to artifact or chronic microhemorrhage. There are nonspecific scattered focal areas of signal change within the cerebral white matter, likely due to chronic small vessel disease in a patient of this age. The orbits are unremarkable. There is a right callie bullosa. There is a small right maxillary sinus mucous retention cyst. There is a smal l amount of bilateral mastoid fluid. There are slight decreased flow voids involving the distal vertebral arteries at the level of C1, lik paul due to flow artifact. There are normal flow voids within the intracranial arteries. No calvarial lesion is seen. IMPRESSION: 1. No acute intracranial finding. 2. Scattered focal areas of signal change within the cerebral white matter, likely due to chronic sma ll vessel disease. 3. Cerebral volume loss. Electronically signed by: Kelsi Liu MD (08/10/2021 4:17 PM) [id number]
--- NOTE | 2021-08-10 18:22 | NUR ---
Discharge Note: [facility] [address] Discharge instructions and discharge home medications reviewed with Patient and a copy given. All questions have been answered and understanding verbalized. Pt family at bedside during DC. Dr. Rothman notified per family request regarding need for antibiotic. Pt in stable condition at time of DC.
[2021-08-10] MEDS ORDERED: NON FORMULARY ITEM (Melatonin 1 CAP) PO SCH (21:00)
[2021-08-10] MEDS ORDERED: DOXEPIN HCL 3 MG PO SCH (21:00)
== END 2021-08-10 18:25 | disposition home or self-care (01) | DRG 690 ==
LOC: ER 19:50 → 6 SOUTH 21:45
PROVIDERS: ADMIT Family Medicine; ATTEND Family Medicine
PROC: 4A00X4Z Measurement of Central Nervous Electrical Activity, External Approach (ICD-10-PCS; principal; 2021-08-10)
DX: N39.0 Urinary tract infection, site not specified (principal); R42 Dizziness and giddiness; E03.9 Hypothyroidism, unspecified; E11.22 Type 2 diabetes mellitus with diabetic chronic kidney disease; E11.65 Type 2 diabetes mellitus with hyperglycemia; E78.00 Pure hypercholesterolemia, unspecified; E78.5 Hyperlipidemia, unspecified; F31.9 Bipolar disorder, unspecified; G20 Parkinson's disease; G25.0 Essential tremor; G25.81 Restless legs syndrome; I12.9 Hypertensive chronic kidney disease with stage 1 through stage 4 chronic kidney disease, or unspecified chronic kidney disease; N18.30 Chronic kidney disease, stage 3 unspecified; Z79.4 Long term (current) use of insulin; Z82.3 Family history of stroke; Z87.891 Personal history of nicotine dependence; Z90.710 Acquired absence of both cervix and uterus; Z96.642 Presence of left artificial hip joint; Z96.653 Presence of artificial knee joint, bilateral; F41.9 Anxiety disorder, unspecified; G51.0 Bell's palsy; G62.9 Polyneuropathy, unspecified; M19.90 Unspecified osteoarthritis, unspecified site; Z79.899 Other long term (current) drug therapy; I95.9 Hypotension, unspecified; Z88.2 Allergy status to sulfonamides; Z90.49 Acquired absence of other specified parts of digestive tract
CPT/HCPCS: 36415; 70450; 70551; 74176; 80048; 80053; 81001; 82962; 84443; 84484; 85025; 85610; 85730; 87086; 93005; 93880; 95816; 96374; 96375; J0696; J1815; J2405; J7030; 99285-25; G0378; J8597